=== PATIENT | male | born 1990 | race Caucasian/White ===

== ENCOUNTER 2018-05-11 09:55 | Emergency (ER) | payer OTHER ==
[~2018-05-11] VITALS: Ht 157.5 cm; Wt 83.9 kg
[~2018-05-11 09:55] MED LIST: FLUOXETINE HCL20 MG PO; MODAFINIL200 MG PO
[2018-05-11] MEDS ORDERED: BACTRIM DS TAB1 EACH PO (10:59)
== END 2018-05-11 11:25 | disposition home or self-care (01) ==
LOC: ED 09:55
DX: J34.0 Abscess, furuncle and carbuncle of nose (principal); Z87.891 Personal history of nicotine dependence; Z79.899 Other long term (current) drug therapy
CPT/HCPCS: 99283

== ENCOUNTER 2020-07-08 02:28 | Emergency (ER) | payer OTHER ==
[~2020-07-08] VITALS: Ht 157.5 cm; Wt 83.9 kg
[~2020-07-08 02:28] MED LIST changes: +BACTRIM DS TAB1 EACH PO
[2020-07-08] MEDS ORDERED: PROZAC20 MG PO (04:33)
[2020-07-08] MEDS ORDERED: PROVIGIL200 MG PO (04:35)
[2020-07-08] MEDS ORDERED: VENTOLIN HFA18 GM INH (04:36)
[2020-07-08] MEDS ORDERED: ALVESCO6.1 G1 INH (04:36)
[2020-07-08] MEDS ORDERED: SINGULAIR10 MG PO (04:36)
[2020-07-08] MEDS ORDERED: PRILOSEC OTC20 MG PO (04:39)
== END 2020-07-08 05:38 | disposition home or self-care (01) ==
LOC: ED 02:28
DX: N13.2 Hydronephrosis with renal and ureteral calculous obstruction (principal); Z87.891 Personal history of nicotine dependence; Z88.1 Allergy status to other antibiotic agents; Z79.899 Other long term (current) drug therapy
CPT/HCPCS: 74176; 80053; 81001; 85025; 96374; 96375; 99284-25; J1200; J1885; J2270; J2405

== ENCOUNTER 2020-11-16 10:03 | Day surgery (SDC) | payer OTHER ==
[~2020-11-16] VITALS: Ht 157.5 cm; Wt 85.0 kg
[~2020-11-16 10:03] MED LIST changes: +ALVESCO6.1 G1 INH; +POLYOX WSR-3011 GM MISC; +PRILOSEC OTC20 MG PO; +PROVIGIL200 MG PO; +PROZAC20 MG PO; +SINGULAIR10 MG PO; +VENTOLIN HFA18 GM INH
[2020-11-16] MEDS ORDERED: ANAFRANIL25 MG PO (10:15)
--- NOTE | 2020-11-16 11:35 | NUR ---
11/16/20 1135 Ava,Kinza 1128 PT ARRIVED TO PACU ON 3L NC, RN ENCOURAGES DEEP BREATHING PT REACTIVE TO TACTTILE STIMULI. VSS.
--- NOTE | 2020-11-17 11:22 | PATH ---
[facility] [address], [place] [address] Signed SPECIMEN(S): A ILEUM BIOPSY SPECIMEN(S): B CECUM BIOPSY SPECIMEN(S): C DESCENDING LEFT COLON BIOPSY SPECIMEN(S): D RECTAL BIOPSY SPECIMEN SOURCE: A. ILEUM BIOPSY B. CECUM BIOPSY C. DESCENDING LEFT COLON BIOPSY D. RECTAL BIOPSY CLINICAL HISTORY: Abdominal pain, rectal hemorrhage, constipation. Postop: Normal colon. MICROSCOPIC DESCRIPTION: Histologic sections of all submitted blocks are examined by light microscopy. These findings, together with the gross examination, support the pathologic diagnosis. FINAL PATHOLOGIC DIAGNOSIS: A. Ileum, biopsy: - Ileal mucosa with no histopathologic abnormality. - Negative for active inflammation or granulomas. - Negative for dysplasia or malignancy. B. Colon, cecum, biopsy: - Colonic mucosa with no histopathologic abnormality. - Negative for chronic, active or microscopic colitis. - Negative for dysplasia or malignancy. C. Colon, descending/left, biopsy: - Colonic mucosa with no histopathologic abnormality. - Negative for chronic, active or microscopic colitis. - Negative for dysplasia or malignancy. D. Rectum, biopsy: - Rectal mucosa with no histopathologic abnormality. - Negative for active or chronic proctitis. - Negative for dysplasia or malignancy. NAL:cml:C2NR GROSS DESCRIPTION: Four specimens are received in four containers, labeled "BS." A. The specimen, labeled "BS, ileum biopsy," is received in formalin and consists of four lopez soft tissue fragment(s) that measure 0.2-0.3 cm in PATIENT NAME: NYDIA HENDERSON PATHOLOGY DATE OF : [birth year] REPORT #: [id number] PHYSICIAN: JOSE EDUARDO CARDENAS PCP: LANDON CHILDS REPORT IS CONFIDENTIAL AND NOT TO BE RELEASED WITHOUT AUTHORIZATION [facility] [address], [place] [address] Signed greatest dimension. The specimen is entirely submitted in cassette (A1). B. The specimen, labeled "BS, cecum biopsy," is received in formalin and consists of two lopez soft tissue fragment(s) that measure 0.2-0.5 cm in greatest dimension. The specimen is entirely submitted in cassette (B1). C. The specimen, labeled "BS, descending colon biopsy," is received in formalin and consists of two lopez soft tissue fragment(s) that measure 0.2 cm in greatest dimension. The specimen is entirely submitted in cassette (C1). D. The specimen, labeled "BS, rectum biopsy," is received in formalin and consists of two lopez soft tissue fragment(s) that measure 0.2-0.3 cm in greatest dimension. The specimen is entirely submitted in cassette (D1). JS (under the direct supervision of a pathologist) The Gross Description was prepared using a voice recognition system. The report was reviewed for accuracy; however, sound-alike word errors, addition and/or deletions may occur. If there is any question about this report, please contact Client Services. PERFORMING LABORATORY: The technical component was performed by [facility] [address] (Office Machine Punch Operator: Courtney Lamas MD; CLIA# [id number]). [facility] [address] [address] (CLIA# [id number]). Diagnostician: Shi Ortega MD Pathologist Electronically Signed 11/17/2020 Copies: ~ PATIENT NAME: NYDIA HENDERSON PATHOLOGY DATE OF : [birth year] REPORT #: [id number] PHYSICIAN: JOSE EDUARDO PATHOLOGY PCP: LANDON CHILDS REPORT IS CONFIDENTIAL AND NOT TO BE RELEASED WITHOUT AUTHORIZATION
--- NOTE | 2020-11-18 16:26 | OR ---
[facility] [address] [place], [place] [address] Signed DATE OF OPERATION: 11/16/2020 SURGEON: Akanksha Reilly MD PREOPERATIVE DIAGNOSES: Abdominal pain, episodic rectal bleeding and chronic constipation. POSTOPERATIVE DIAGNOSIS: Normal-appearing colon and ilium. PROCEDURE: Total colonoscopy to cecum with intubation of ileum and biopsies. ANESTHESIA: Intravenous sedation, fentanyl 100 mcg and Versed 7 mg. INDICATION: This 30-year-old white man is a prisoner at [facility] and a patient of REGINA Daiz. He has had complaints of abdominal pain, episodic rectal bleeding and chronic constipation. A was noted to be 75 (normal up to 50). He has no family history of colon cancer or inflammatory bowel disease. He is admitted to undergo colonoscopy to better characterize the problem, understanding the risks of bleeding, infection, perforation findings, the prep was excellent, complete colonoscopy was undertaken of the cecum with intubation of the ileum as well. All areas appeared normal. Biopsies were taken of the ileum, cecum, left colon, and rectum. DESCRIPTION OF PROCEDURE: The patient was brought to the endoscopy suite and placed in lateral decubitus position, given intravenous sedation to the point of slurred speech and nystagmus. Digital rectal examination was normal. An Olympus video colonoscope was passed in the rectum and manipulated throughout the colon ultimately intubating the cecum itself. The ileocecal valve and appendiceal orifice were normal. With various manipulations, the ileum was ultimately intubated and passed a several cm into it, which appeared normal. Biopsies were taken nevertheless. The scope was withdrawn to the cecum and biopsies were then taken of the cecum. Careful withdrawal of scope showed no sign of abnormality throughout. Biopsies were taken of the left colon as well as rectum. Retroflexed view was normal as well. Careful inspection to the anorectal area showed no sign of fissure or other problem. The scope was removed and the patient was taken to the recovery room in good condition. Electronically Signed By: AKANKSHA REILLY MD 11/18/20 1626 PATIENT NAME: NYDIA HENDERSON OPERATIVE REPORT DATE OF : [birth year] REPORT #: [id number] PHYSICIAN: AKANKSHA REILLY MD PCP: LANDON CHILDS REPORT IS CONFIDENTIAL AND NOT TO BE RELEASED WITHOUT AUTHORIZATION [facility] [address] [place] [id number] Signed CONCLUDING DIAGNOSIS: Normal-appearing ileum and colon. PLAN: Recommend continued use of MiraLAX 1 scoop daily as well as fiber supplement such as Metamucil one scoop daily. FOLLOWUP PLANS: He will return to the ongoing care of REGINA Cordova. If additional evaluation is needed, I am happy to see him again at the request of REGINA Cordova. MD PHANI Booker/SHERIE /[id number] cc: REGINA De La Paz Copies: LANDON CHILDS ~ Electronically Signed By: AKANKSHA REILLY MD 11/18/20 1626 PATIENT NAME: HENDERSONNYDIA Yumiko OPERATIVE REPORT DATE OF : [birth year] REPORT #: [id number] PHYSICIAN: AKANKSHA REILLY MD PCP: LANDON CHILDS REPORT IS CONFIDENTIAL AND NOT TO BE RELEASED WITHOUT AUTHORIZATION
== END 2020-11-16 12:12 | disposition home or self-care (01) ==
LOC: OPS 10:03
PROVIDERS: ATTEND Surgery
PROC: 0DBE8ZZ Excision of Large Intestine, Via Natural or Artificial Opening Endoscopic (ICD-10-PCS; principal; 2020-11-16 13:00)
DX: K62.5 Hemorrhage of anus and rectum (principal); R10.9 Unspecified abdominal pain; K59.09 Other constipation; J45.909 Unspecified asthma, uncomplicated; K21.9 Gastro-esophageal reflux disease without esophagitis; I10 Essential (primary) hypertension; G47.30 Sleep apnea, unspecified; Z88.1 Allergy status to other antibiotic agents
CPT/HCPCS: 99153; G0500; J2250; J3010; J7121; U0003